=== PATIENT | male | born 1970 | race Caucasian/White ===

== ENCOUNTER 2019-07-17 08:41 | Emergency (ER) | payer OTHER ==
--- NOTE | 2019-07-17 08:54 | PDOC ---
History of Present Illness - General Chief Complaint: Allergic Reaction Stated Complaint: ALLGERIC REACTION Time Seen by Provider: 07/17/19 08:45 History Source: Patient Exam Limitations: No Limitations Past History - Travel Traveled outside of the country in the last 30 days: No Close contact w/someone who was outside of country & ill: No - Past Medical History Allergies/Adverse Reactions: Allergies Allergy/AdvReac Type Severity Reaction Status Date / Time apple Allergy Verified 08/05/15 11:04 aspirin Allergy Verified 08/03/15 21:28 avocado Allergy Verified 08/05/15 11:04 banana Allergy Verified 08/05/15 11:04 peach Allergy Verified 08/05/15 11:04 pear Allergy Verified 08/05/15 11:04 peanuts Allergy Uncoded 08/05/15 11:04 plums Allergy Uncoded 08/05/15 11:04 soy milk Allergy Uncoded 08/05/15 11:04 Home Medications: Ambulatory Orders Diphenhydramine HCl [Benadryl -] 25 mg PO HS #10 capsule 07/17/19 Ranitidine [Zantac -] 150 mg PO BID #14 tablet 07/17/19 predniSONE [Deltasone -] 20 mg PO DAILY #30 tablet 07/17/19 Anemia: No Asthma: No Cancer: No Cardiac Disorders: No CVA: No COPD: No CHF: No Dementia: No Diabetes: No GI Disorders: No Disorders: No HTN: No Hypercholesterolemia: No Liver Disease: No Seizures: No Thyroid Disease: No - Surgical History Abdominal Surgery: No Appendectomy: No Cardiac Surgery: No Cholecystectomy: No Lung Surgery: No Neurologic Surgery: No Orthopedic Surgery: No - Immunization History Immunization Up to Date: Yes - Suicide/Smoking/Psychosocial Hx Smoking History: Never smoked Have you smoked in the past 12 months: Yes Number of Cigarettes Smoked Daily: 2 'Breaking Loose' booklet given: 08/04/15 Hx Alcohol Use: No Drug/Substance Use Hx: No Substance Use Type: None Hx Substance Use Treatment: No Review of Systems - Review of Systems Able to Perform ROS?: Yes Comments:: 07/17/19 08:47 CONSTITUTIONAL: Absent: fever, chills, diaphoresis, generalized weakness, malaise, loss of appetite HEENT: Absent: rhinorrhea, nasal congestion, throat pain, throat swelling, difficulty swallowing, mouth swelling, ear pain, eye pain, visual Changes CARDIOVASCULAR: Absent: chest pain, loss of consciousness, palpitations, irregular heart rate, peripheral edema RESPIRATORY: Absent: cough, shortness of breath, dyspnea with exertion, orthopnea, wheezing, stridor, hemoptysis MUSCULOSKELETAL: Absent: myalgia, arthralgia, joint swelling SKIN: Present: rash, itching Absent: pallor NEUROLOGIC: Absent: headache, focal weakness or paresthesias, dizziness, unsteady gait, seizure, mental status changes, bladder or bowel incontinence PSYCHIATRIC: Absent: anxiety, depression, suicidal or homicidal ideation, hallucinations. Is the patient limited [place]olan proficient: No *Physical Exam - Vital Signs Last Vital Signs Temp Pulse Resp BP Pulse Ox 98.2 F 88 17 165/98 97 07/17/19 08:43 07/17/19 08:43 07/17/19 08:43 07/17/19 08:43 07/17/19 08:43 - Physical Exam Comments: 07/17/19 08:48 GENERAL: The patient is awake, alert, and fully oriented, in no acute distress. HEAD: Normal with no signs of trauma. EYES: Pupils equal, round and reactive to light, extraocular movements intact, sclera anicteric, conjunctiva clear. EXTREMITIES: Normal range of motion, no edema. NEUROLOGICAL: Normal speech, normal gait. PSYCH: Normal mood, normal affect. SKIN: Erythematous, pruritic, blanching patches noted. Linear scratches noted within the patches affecting the L neck, lower legs b/l and forearms b/l. Warm, Dry, normal turgor. Medical Decision Making - Medical Decision Making 07/17/19 08:51 The patient is a 48 y/o M who presents to the ER with a rash to his forearms, legs and neck after being exposed to poison niecy yesterday. He states that the rash is very itchy. He has tried taking anything for his symptoms. Denies fevers , chills, shortness of breath, wheezing. A/P: Poison Niecy dermatitis On exam erythematous, pruritic, blanching patches noted. Linear scratches noted within the patches affecting the L neck, lower legs b/l and forearms b/l. Appears to be a classic poison niecy rash Will prescribe prednisone, benadryl and zantac and give PCP follow up I discussed the physical exam findings, ancillary test results and final diagnoses with the patient. I answered all of the patient's questions. The patient was satisfied with the care received and felt comfortable with the discharge plan and treatment plan. The Patient agrees to follow up with the primary care physician/specialist within 24-72 hours. Return precautions were given. *DC/Admit/Observation/Transfer Diagnosis at time of Disposition: Allergic reaction Qualifiers: Encounter type: initial encounter Qualified Code(s): T78.40XA - Allergy, unspecified, initial encounter - Discharge Dispostion Disposition: HOME Condition at time of disposition: Stable Decision to Admit order: No - Referrals Referrals: Harsha Aldridge MD [Primary Care Provider] - - Patient Instructions Printed Discharge Instructions: DI for Poison Niecy Allergy Additional Instructions: You have a poison niecy rash Take the Prednisone starting tomorrow as prescribed. Take the Zantac twice a day for one week at morning and night Take the benadryl at night before bed. Do not drink or drive after taking this medication as it may make you sleepy You may use calimine lotion on the rash Return to the ER for any new or worsening symptoms - Post Discharge Activity Forms/Work/School Notes: Back to Work
[2019-07-17 08:55] VITALS: BP 165/98; PULSE 88; TEMP 98.2; BMI 31.2
[2019-07-17] MEDS ORDERED: DEXAMETHASONE LIQUID 0.5 MG/5 ML PO ONE (09:14)
[2019-07-17] MEDS ORDERED: RANITIDINE HCL 150 MG TABLET (FP) PO ONE (09:14)
[2019-07-17] MEDS ORDERED: RANITIDINE HCL 150 MG TABLET (FP) ONE (09:19)
[2019-07-17] MEDS ORDERED: DEXAMETHASONE SOD PHOSPHATE 10 MG/1 ML VIAL ONE (09:19)
== END 2019-07-17 09:30 | disposition home or self-care (01) ==
LOC: JER 08:41
DX: L23.7 Allergic contact dermatitis due to plants, except food (principal)
CPT/HCPCS: 99281-25

== ENCOUNTER 2020-12-10 01:19 | Emergency (ER) | payer OTHER ==
[2020-12-10 01:46] VITALS: BP 161/68; PULSE 66; TEMP 98.5; BMI 25.8
[2020-12-10 02:54] LABS: BASO % 0.6 % (0-2.0); EOS % 4.6 % (0-4.5); HEMATOCRIT 41.3 % (35.4-49); HEMOGLOBIN 14.4 GM/dL (11.7-16.9); LYMPH % 23.8 % (8-40); MCH 33.8 pg (25.7-33.7); MCHC 34.8 g/dl (32.0-35.9); MEAN CELL VOLUME 97.2 fl (80-96); MEAN PLT VOLUME 7.2 fl (7.5-11.1); MONO % 12.9 % (3.8-10.2); NEUT % 58.1 % (42.8-82.8); PLATELET COUNT 247 K/MM3 (134-434); RBC 4.25 M/mm3 (4.00-5.60); RDW 13.1 % (11.9-15.9); WHITE BLOOD COUNT 7.1 K/mm3 (4.0-10.0)
[2020-12-10 03:07] LABS: POTASSIUM 4.3 mmol/L (3.5-5.1); SODIUM 138 mmol/L (136-145)
[2020-12-10 03:09] LABS: CALCIUM 8.5 mg/dL (8.5-10.1)
[2020-12-10 03:10] LABS: ALBUMIN 3.8 g/dl (3.4-5.0); BLOOD UREA NITROGEN 19.6 mg/dL (7-18); CO2 30 mmol/L (21-32); GLUCOSE,RANDOM 114 mg/dL (74-106)
[2020-12-10 03:13] LABS: CREATININE 1.2 mg/dL (0.55-1.3); SGOT/AST 28 U/L (15-37); SGPT/ALT 45 U/L (13-61)
[2020-12-10 03:15] LABS: TOT PROT 7.4 g/dl (6.4-8.2)
[2020-12-10 03:16] LABS: ALK PHOS 97 U/L (45-117)
[2020-12-10 03:27] LABS: ANION GAP 2 MMOL/L (8-16); BILIRUBIN,TOTAL 0.1 mg/dL (0.2-1); CHLORIDE 106 mmol/L (98-107)
== END 2020-12-10 04:22 | disposition home or self-care (01) ==
LOC: JER 01:19
DX: M79.602 Pain in left arm (principal)
CPT/HCPCS: 36415; 71045-TC-FY; 80053; 84484; 85025; 93005; 93010; 99284-25